=== PATIENT | female | born 1980 | race African-American/Black ===

== ENCOUNTER → 2021-01-29 | Outpatient (CLI) | payer BC | LOC: LAB 09:18 | PROVIDERS: ATTEND Anesthesiology | DX: Z01.812 Encounter for preprocedural laboratory examination (principal); Z20.822 Contact with and (suspected) exposure to COVID-19 ==

== ENCOUNTER → 2021-02-08 | Outpatient (CLI) | payer BC | LOC: LAB 12:21 | PROVIDERS: ATTEND Anesthesiology | DX: Z01.812 Encounter for preprocedural laboratory examination (principal); Z20.822 Contact with and (suspected) exposure to COVID-19 ==